=== PATIENT | male | born 2000 | race African-American/Black ===

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

== ENCOUNTER 2024-06-25 15:34 | Outpatient (AMB) | payer OTHER, SELFPAY ==
[2024-06-25 15:36] VITALS: BP 128/78; PULSE 86; TEMP 36.6; O2SAT 98; BMI 31.2
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
== END 2024-06-25 15:57 | disposition home or self-care (01) ==
PROVIDERS: Visit Provider Physician Assistant
DX: Z20.2 Contact with and (suspected) exposure to infections with a predominantly sexual mode of transmission (principal)

== ENCOUNTER 2024-06-25 15:34 | Outpatient (REF) | payer OTHER, SELFPAY ==
[2024-06-27 13:32] LABS: CT PCR NOT DETECTED (Not Detect.); NG PCR NOT DETECTED (Not Detect.)
== END 2024-06-25 15:35 | disposition home or self-care (01) ==
LOC: HO.LNP 15:34
PROVIDERS: Physician Assistant
DX: Z20.2 Contact with and (suspected) exposure to infections with a predominantly sexual mode of transmission (principal)
CPT/HCPCS: 87491; 87591